=== PATIENT | female | born 1955 | race Caucasian/White ===

== ENCOUNTER 2019-07-13 09:22 | Outpatient (REF) | payer MEDICARE, BC, SELFPAY ==
--- NOTE | 2019-07-13 07:30 | PAPFT_PTH ---
PATIENT: Tomasa Javier LOC: [facility] U#:[id number] AGE/SX: 64/F ROOM: RE07/13/[address]: Sheila Najera : 1955 BED: DIS: 07/13/2019 SPEC #: [id number] RECD: 07/14/19 12:56 STATUS: HUY REKina #: [id number] ROSS: 07/13/19 07:[address]: Sheila Najera DEPT: [facility] Cytology RECD BY: Yoon Choi ENTERED: 07/14/19 12:56 SP TYPE: PAPFT OTHR DR: Debby Fajardo V Tissues: 1 - CX/ENDOCX FOR PAP SMEARS Procedures: PAP THIN PREP/U[facility] Screening HPV DNA PROBE Comments: [id number]
== END 2019-07-13 09:42 ==
LOC: NCHCN 09:22
PROVIDERS: PCP Family Medicine; Visit Provider Physician Assistant Medical
DX: Z12.4 Encounter for screening for malignant neoplasm of cervix (principal); Z11.51 Encounter for screening for human papillomavirus (HPV)
CPT/HCPCS: 88142; 87624

== ENCOUNTER 2019-07-21 09:50 | Outpatient (REF) | payer MEDICARE, BC, SELFPAY ==
[2019-07-21 23:20] LABS: ALT 35 U/L (14-59); AST 19 U/L (15-37); Albumin 3.6 g/dL (3.4-5.0); Alkaline Phosphatase 121 U/L (46-116); BUN 16 mg/dL (7-18); Bilirubin, Total 0.4 mg/dL (0.2-1.0); CREATININE 0.88 mg/dL (0.55-1.02); Calcium 8.5 mg/dL (8.5-10.1); Calculated LDL 121 mg/dL; Chloride 106 mmol/L (98-107); Cholesterol 178 mg/dL (<200); Glucose 92 mg/dL (74-106); HDL Cholesterol 42 mg/dL (40-60); Potassium 4.3 mmol/L (3.5-5.1); Sodium 142 mmol/L (136-145); Total Protein 6.7 g/dL (6.4-8.2); Triglyceride 76 mg/dL (<150)
== END 2019-07-21 10:10 ==
LOC: NCHCN 09:50
PROVIDERS: PCP Family Medicine; Visit Provider Physician Assistant Medical
DX: E78.89 Other lipoprotein metabolism disorders (principal); Z13.228 Encounter for screening for other metabolic disorders
CPT/HCPCS: 80053; 80061

== ENCOUNTER 2019-08-10 01:29 | Outpatient (CLI) | payer MEDICARE, BC, SELFPAY ==
--- NOTE | 2019-08-10 08:30 | DI.MAMMO_ITS ---
EXAM: MG MAMMO SCREENING CLINICAL HISTORY: SCREENING, HEALTH MAINTENANCE, Z00.8. TECHNIQUE: Bilateral full field digital CC and MLO mammographic images were obtained with 3D tomosyn thesis and utilizing computer aided detection (CAD). COMPARISON: Available for comparison. FINDINGS: Masses/Architectural Distortion: None seen. Microcalcifications: No suspicious pleomorphic-type are seen. Skin Thickening/Nipple Retraction: None. IMPRESSION: 1. No significant interval change with no specific features of malignancy noted. 2. Unless there is more urgent need, screening mammography is recommended, as per [employer] guidelines. ACR BI-RAD Category- 1 Negative Breast Density - Category B - Scattered areas of fibroglandular density A negative radiographic report should not delay biopsy if a dominant or clinically suspicious mass is present. Up to ten percent of cancers are not identified on mammography. A negative report may reinforce clinical impression. Adenosis and dense breasts may obscure an underlying neoplasm. False positive reports average 6 to 10%. Patient will receive a letter notifying them of these results.
--- NOTE | 2019-08-10 08:33 | DI.DEXA_ITS ---
EXAM: XR DEXA BONE DENSITY W/WO LAVELLE INDICATION: HEALTH MAINTENANCE, Z00.08,SCREENING FOR OSTEOPOROSIS IN POSTMENOPAUSAL. COMPARISON: No exams were available for comparison TECHNIQUE: 2D digital imaging was performed. FINDINGS: The lateral view of the spine shows no compression fracture deformities. Evaluation of the left hip shows a total T-score of -0.7 and a Z-score of 0.6. This is within normal limits. Evaluation of the lumbar spine shows a total T-score of -1.1 and a Z-score of 0.8 . This is consiste nt with osteopenia and an increased fracture risk. No evidence of osteoporosis. IMPRESSION: No evidence of osteoporosis.
== END 2019-08-10 01:49 ==
PROVIDERS: PCP Physician Assistant Medical; Visit Provider Physician Assistant Medical
DX: M85.88 Other specified disorders of bone density and structure, other site (principal); Z78.0 Asymptomatic menopausal state; Z12.31 Encounter for screening mammogram for malignant neoplasm of breast
CPT/HCPCS: 77063; 77067; 77080

== ENCOUNTER → 2022-06-21 00:43 | Outpatient (CLI) | payer MEDICARE, BC, SELFPAY ==
--- NOTE | 2022-06-21 | DI.MAMMO_ITS ---
Exam(s) MAMMO SCREENING EXAM: MAMMO SCREENING CLINICAL HISTORY: SCREENING, Z12.31. TECHNIQUE: Bilateral full field digital CC and MLO mammographic images were obtained with 3D tomosyn thesis and utilizing computer aided detection (CAD). COMPARISON: Prior mammograms were reviewed. FINDINGS: There has been no significant change in the appearance and distribution of the fibroglandular tissue. There are no new spiculated masses nor malignant appearing microcalcification groups. There is no significant architectural distortion nor skin thickening-retraction. IMPRESSION: No radiographic evidence of malignancy. BI-RADS Category 1 - Negative Breast Density - Category B - Scattered areas of fibroglandular density Breast density Category C or D implies that the patient has dense breast tissue. Dense breast tissue can make it harder to find cancer on a mammogram. Dense breast tissue is also associated with an incr eased risk of breast cancer. This information about the result of the mammogram report was provided to the patient to raise their awareness. Use this report when you speak with the patient about their risks for breast cancer, which includes their family history. At that time, you may recommend additional screening tests (Ultrasoun d or MRI) as these tests may add significant information. A negative radiographic report should not delay biopsy if a dominant or clinically suspicious mass is present. Up to ten percent of cancers are not identified on mammography. A negative report may reinforce clinical impression. Adenosis and dense breasts may obscure an underlying neoplasm. False positive reports average 6 to 10%. Patient will receive a letter notifying them of these results.
== END ==
PROVIDERS: PCP Physician Assistant Medical; Visit Provider Physician Assistant Medical
DX: Z12.31 Encounter for screening mammogram for malignant neoplasm of breast (principal)
CPT/HCPCS: 77063; 77067

== ENCOUNTER 2022-07-12 11:16 | Outpatient (REF) | payer MEDICARE, BC, SELFPAY ==
[2022-07-12 15:56] LABS: ALT 26 U/L (14-59); AST 25 U/L (15-37); Alkaline Phosphatase 139 U/L (46-116); BUN 14 mg/dL (7-18); Bilirubin, Total 0.4 mg/dL (0.2-1.0); CREATININE 0.8 mg/dL (0.55-1.02); Calcium 8.9 mg/dL (8.5-10.1); Calculated LDL 138 mg/dL (<100); Chloride 107 mmol/L (98-107); Cholesterol 214 mg/dL (<200); Estimated GFR 79.71 (mL/min/1.73m2); Glucose 91 mg/dL (74-106); HDL Cholesterol 59 mg/dL (40-60); Potassium 4.1 mmol/L (3.5-5.1); Sodium 141 mmol/L (136-145); Total Protein 7.6 g/dL (6.4-8.2); Triglyceride 86 mg/dL (<150)
== END 2022-07-12 11:17 | disposition home or self-care (01) ==
LOC: NCHCN 11:16
PROVIDERS: PCP Physician Assistant Medical; Visit Provider Physician Assistant Medical
DX: E78.89 Other lipoprotein metabolism disorders (principal); R74.8 Abnormal levels of other serum enzymes; Z00.8 Encounter for other general examination
CPT/HCPCS: 80053; 80061

== ENCOUNTER 2023-08-22 09:03 | Outpatient (REF) | payer MEDICARE, OTHER, SELFPAY ==
[2023-08-22 17:06] LABS: Calculated LDL 125 mg/dL (<100); Cholesterol 192 mg/dL (<200); Glucose 101 mg/dL (74-106); HDL Cholesterol 53 mg/dL (40-60); Triglyceride 73 mg/dL (<150)
== END 2023-08-22 09:04 | disposition home or self-care (01) ==
LOC: NCHCN 09:03
PROVIDERS: PCP Physician Assistant Medical; Visit Provider Physician Assistant Medical
DX: Z00.00 Encounter for general adult medical examination without abnormal findings (principal)
CPT/HCPCS: 80061; 82947

== ENCOUNTER → 2023-12-26 00:05 | Outpatient (CLI) | payer MEDICARE, OTHER, SELFPAY ==
--- NOTE | 2023-12-26 | DI.DEXA_ITS ---
Exam(s) XR DEXA BONE DENSITY W/WO LAVELLE EXAM: XR DEXA BONE DENSITY W/WO LAVELLE CLINICAL HISTORY: MENOPAUSAL STATE Z78.0 TECHNIQUE: [employer] C densitometer analysis of left hip, lumbar spine and left forearm. Lat eral survey image of the thoracic and lumbar spine. COMPARISON: CR XR DEXA BONE DENSITY W/WO LAVELLE from 08/10/2019 FINDINGS: Lateral view of the thoracic and lumbar spine shows no evidence of compression fractures. Bone mineral density measurements of the lumbar spine correspond to a total T-score of -1.9, in the osteopenic range. This represents a 9.0 percent decrease compared to 2020. Bone mineral density measurements of the left hip correspond to a total T-score of -0.7. This is no t significantly changed from 2020.. The femoral neck T-score is -1.2, in the mildly osteopenic rang e.. Theleft forearm bone mineral density measurements correspond to a T-score of the distal 3rd of -2.5, at the osteoporotic range. This represents an 8.9 percent decrease from the prior exam. IMPRESSION: Osteoporosis of the forearm. Osteopenia of the hip and spine.
--- NOTE | 2023-12-26 | DI.MAMMO_ITS ---
Exam(s) MAMMO SCREENING EXAM: MAMMO SCREENING CLINICAL HISTORY: SCREENING Z12.31 TECHNIQUE: Mammograms were interpreted according to the usual protocol including computer analysis w [employer] CAD system, tomosynthesis and C-view imaging. COMPARISON: 2014 through 2021 FINDINGS: The breasts are composed of scattered fibroglandular densities, Breast Density category B. No suspicious masses or suspicious microcalcifications are seen. No skin thickening or abnormal axillary lymph nodes are seen. There has been no significant change from prior exams. IMPRESSION: BI-RADS Category 1, Negative mammogram Yearly screening mammography is recommended. Breast Density - Category B, scattered fibroglandular densities. A negative radiographic report should not delay biopsy if a dominant or clinically suspicious mass is present. Up to ten percent of cancers are not identified on mammography. A negative report may reinforce clinical impression. Adenosis and dense breasts may obscure an underlying neoplasm. False positive reports average 6 to 10%. Patient will receive a letter notifying them of these results.
== END ==
PROVIDERS: PCP Physician Assistant Medical; Visit Provider Physician Assistant Medical
DX: Z78.0 Asymptomatic menopausal state (principal); Z12.31 Encounter for screening mammogram for malignant neoplasm of breast; Z13.820 Encounter for screening for osteoporosis; M81.0 Age-related osteoporosis without current pathological fracture
CPT/HCPCS: 77063; 77067; 77080

== ENCOUNTER 2024-03-05 10:25 | Outpatient (REF) | payer MEDICARE, OTHER, SELFPAY ==
--- NOTE | 2024-03-05 08:45 | NASALBX_PTH ---
PATIENT: Tomasa Javier LOC: [facility] U#:[id number] AGE/SX: 69/F ROOM: RE03/05/[address]: GOMEZ Fatima : 1955 BED: DIS: 03/05/2024 SPEC #: [id number] RECD: 03/05/24 17:28 STATUS: HUY REQ #: [id number] ROSS: 03/05/24 08:[address]: Rajiv Harmon DEPT: Surgical Specimen RECD BY: Yoon Choi ENTERED: 03/05/24 17:28 SP TYPE: NASALBX OTHR DR: Sheila Najera Tissues: 1 - MUCOSA, NOS Procedures: SKIN LEVEL 4 Comments: [id number]
== END 2024-03-05 10:26 | disposition home or self-care (01) ==
LOC: LBN 10:25
PROVIDERS: PCP Physician Assistant Medical; Visit Provider Physician Assistant
DX: D49.2 Neoplasm of unspecified behavior of bone, soft tissue, and skin; D22.39 Melanocytic nevi of other parts of face; L82.1 Other seborrheic keratosis
CPT/HCPCS: 88305